=== PATIENT | male | born 1955 | race Caucasian/White ===

== ENCOUNTER 2017-02-01 20:15 | Emergency (ER) | payer BC ==
[~2017-02-01] VITALS: Ht 167.6 cm; Wt 55.0 kg
[2017-02-01 20:21] VITALS: BP 135/80; PULSE 85; RESP 18; TEMP 98.1; O2SAT 99
[2017-02-01] MEDS ORDERED: LEXA5TAB PO (21:07)
[2017-02-01] MEDS ORDERED: ASPI81TA81 (21:07)
[2017-02-01] MEDS ORDERED: LIPI10TA PO (21:07)
[2017-02-01] MEDS ORDERED: PLAV75TA29 PO (21:07)
[2017-02-01] MEDS ORDERED: TAMS5CAP PO (21:07)
[2017-02-01] MEDS ORDERED: ALPR.25 PO (21:08)
[2017-02-01] MEDS ORDERED: LIDOCAINE HCL 1% 20 ML VIAL INFIL ONE (21:15)
[2017-02-01] MEDS ORDERED: LIDOCAINE HCL 1% 50 ML VIAL INFIL ONE (21:16)
--- NOTE | 2017-02-01 21:34 | PD ---
HPI Chief Complaint: Complaint Time Seen by Provider: 20:52 Travel History International Travel<30 days: No Contact w/Intl Traveler<30days: No Traveled to known affect area: No History of Present Illness HPI This 62-year-old male is complaining of pain and swelling of his penis. He says that 6 days ago he retracted the foreskin and since then the foreskin has not gone back. This has never happened to him before. He has a history of peripheral vascular disease and is on Plavix and aspirin. He has no trouble urinating PFSH Past Medical History Hx Anticoagulant Therapy: Yes Cardiovascular Problems: Yes (STENTS) Diminished Hearing: No Medical other: Yes (FEMORAL STENTS) Immunizations Current: Yes Migraines: Yes Tetanus Vaccination: Unknown Influenza Vaccination: No Social History Alcohol Use: No Tobacco Use: Yes Substance Use: No Allergies-Medications (Allergen,Severity, Reaction): Coded Allergies: Contrast Media (Verified Allergy, Unknown, HIVES, 02/01/17) Reported Meds & Prescriptions Reported Meds & Active Scripts Active Reported Xanax (Alprazolam) 0.25 Mg Tab 0.25 Mg PO Q4H PRN Lipitor (Atorvastatin Calcium) 10 Mg Tab 10 Mg PO HS Flomax (Tamsulosin HCl) 0.4 Mg Cap 0.4 Mg PO HS Aspir-81 (Aspirin) 81 Mg Tabdr Plavix (Clopidogrel Bisulfate) 75 Mg Tab 75 Mg PO DAILY Lexapro (Escitalopram Oxalate) 5 Mg Tab 5 Mg PO TID Review of Systems General / Constitutional: No: Fever, Chills Eyes: No: Diploplia, Blurred Vision HENT: No: Headaches, Vertigo Cardiovascular: No: Chest Pain or Discomfort, Palpitations Respiratory: No: Cough, Shortness of Breath Gastrointestinal: No: Nausea, Vomiting Genitourinary: Positive: Other (penile swelling) Musculoskeletal: No: Myalgias, Arthralgias Physical Exam Narrative GENERAL: Well-developed male SKIN: Focused skin assessment warm/dry. HEAD: Atraumatic. Normocephalic. EYES: Pupils equal and round. No scleral icterus. No injection or drainage. ENT: No nasal bleeding or discharge. Mucous membranes pink and moist. NECK: Trachea midline. No JVD. CARDIOVASCULAR: Regular rate and rhythm. No murmur appreciated. RESPIRATORY: No accessory muscle use. Clear to auscultation. Breath sounds equal bilaterally. GASTROINTESTINAL: Abdomen soft, non-tender, nondistended. Hepatic and splenic margins not palpable. The head of the penis is enlarged and there is some swelling of the glans. The foreskin is retracted with the head of the penis MUSCULOSKELETAL: No obvious deformities. No clubbing. No cyanosis. No edema. NEUROLOGICAL: Awake and alert. No obvious cranial nerve deficits. Motor grossly within normal limits. Normal speech. PSYCHIATRIC: Appropriate mood and affect; insight and judgment normal. Data Data Last Documented VS Vital Signs Date Time Temp Pulse Resp B/P Pulse Ox O2 Delivery O2 Flow Rate FiO2 02/01/17 20:33 85 18 02/01/17 20:21 98.1 135/80 99 Orders Lidocaine 1% Inj (50 Ml) (Xylocaine 1% I (02/01/17 21:16) [facility] Medical Decision Making Medical Screen Exam Complete: Yes Emergency Medical Condition: Yes Medical Record Reviewed: Yes Differential Diagnosis Patient has paraphimosis Narrative Course I discussed the case with Dr. Haile. Plan was to admit the patient for surgery in the morning. The patient is adamant that he cannot be admitted he has to go to take care of his dogs. To this area and has no one that can help him. I have apprised findings of this and the patient is to call Dr. Haile first thing in the morning so that surgery can be arranged Diagnosis Primary Impression: Paraphimosis Referrals: Mat Haile MD Additional Instructions: call Dr Haile in morning to arrange for treatment Disposition: 01 DISCHARGE HOME Condition: Stable Luis Mon MD February 01, 2017 21:34
[2017-02-01 21:52] VITALS: BP 117/68
== END 2017-02-01 21:54 | disposition home or self-care (01) ==
LOC: PHED 20:15
DX: N47.2 Paraphimosis (principal)
CPT/HCPCS: 99283